=== PATIENT | male | born 2000 | race Caucasian/White ===

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

== ENCOUNTER → 2020-11-30 | Outpatient (CLI) | payer OTHER | LOC: M OUTALCOH 08:06 | PROVIDERS: ATTEND Psychiatry & Neurology Psychiatry | DX: Z03.89 Encounter for observation for other suspected diseases and conditions ruled out (principal) ==